=== PATIENT | female | born 1935 | race Caucasian/White ===

== ENCOUNTER 2019-05-13 11:43 | Inpatient (IN) | payer OTHER, MEDICAID ==
[~2019-05-13] VITALS: Ht 149.9 cm; Wt 50.8 kg
[~2019-05-13 11:43] MED LIST: ALBU8.5H8 INH; ATOR20TA64 PO; CALC-823 PO; CYAN250010 PO; DULO60CA41 PO; GABA-531 PO; GINK120C PO; LORA-790 PO; MIRT15TA7 PO; PSYL3.4P6 PO; TRAM50TA92 PO
[2019-05-13 11:55] VITALS: BP_SYST 112
[2019-05-13] MEDS ORDERED: IPRATROPIUM/ALBUTEROL SULFATE 3 ML AMPUL.NEB (DUONEB) INH ONE (12:30)
[2019-05-13 13:10] LABS: BASOPHILS % (AUTO) 0.3 % (0.0-2.0); EOSINOPHILS % (AUTO) 0.1 % (0.0-4.0); HEMATOCRIT 39.5 % (36-48); HEMOGLOBIN 12.7 g/dL (12.0-16.0); LYMPHOCYTES # (AUTO) 0.5 K/uL (1.0-5.5); LYMPHOCYTES % (AUTO) 6.2 % (20.5-51.5); MEAN CORPUSCULAR HEMOGLOBIN 27 pg (27-31); MEAN CORPUSCULAR HGB CONC 32 % (32-36); MEAN CORPUSCULAR VOLUME 83 fL (79.0-98.0); MONOCYTES # (AUTO) 0.3 K/uL (0.0-1.0); MONOCYTES % (AUTO) 3.3 % (1.7-9.3); NEUTROPHILS # (AUTO) 6.8 K/uL (1.8-7.7); NEUTROPHILS % (AUTO) 90.1 % (40.0-70.0); PLATELET COUNT (AUTO) 198 K/uL (130-430); RED BLOOD CELL COUNT(AUTO) 4.76 MIL/uL (4.2-6.2); RED CELL DISTRIBUTION WIDTH 16.5 % (9.0-15.0); WHITE BLOOD COUNT (AUTO) 7.6 K/uL (4.8-10.8)
[2019-05-13 13:19] LABS: ANION GAP 12 (5-15); CALCIUM 8.2 mg/dL (8.4-11.0); CHLORIDE 100 mmol/L (98-107); CREATININE 1.34 mg/dL (0.55-1.30); GLUCOSE 85 mg/dL (70-99); POTASSIUM 4.4 mmol/L (3.5-5.1); SODIUM SERUM 137 mmol/L (136-145); UREA NITROGEN, BLOOD 30 mg/dL (8-21)
[2019-05-13 13:21] LABS: PROTHROMBIN TIME 10.3 SECS (9.5-12.5)
[2019-05-13 13:26] LABS: ALANINE AMINOTRANSFERASE 37 U/L (12-78); ASPARTATE AMINOTRANSFERASE 59 U/L (10-37); TOTAL BILIRUBIN 0.5 mg/dL (0.0-1.0)
[2019-05-13] MEDS ORDERED: KETOROLAC TROMETHAMINE 15 MG VIAL IVP ONE (13:45)
[2019-05-13] MEDS ORDERED: methylPREDNISolone SOD SUCC/PF 62.5 MG/ML VIAL IVP ONE ×2 (13:45→17:45)
[2019-05-13] MEDS ORDERED: FLUT1DIS3 IH (15:40)
[2019-05-13] MEDS ORDERED: ASPI-1153 PO (15:40)
[2019-05-13 16:10] VITALS: BP_SYST 105
[2019-05-13] MEDS ORDERED: ALBUTEROL SULFATE 0.083% 2.5 MG/3 ML VIAL.NEB INH PRN (17:15)
[2019-05-13] MEDS ORDERED: IPRATROPIUM BROM 0.5 MG/2.5 ML VIAL.NEB (ATROVENT) INH PRN (17:15)
[2019-05-13] MEDS ORDERED: traMADol HCL HCL 50 MG TABLET (ULTRAM) PO PRN (17:15)
[2019-05-13] MEDS ORDERED: MAGNESIUM SULFATE 50 ML IV ONE (18:00)
[2019-05-13 18:04] VITALS: BP_SYST 105
[2019-05-13 20:00] VITALS: BP_SYST 153
[2019-05-13] MEDS: ALBUTEROL SULFATE 0.083% 2.5 MG/3 ML VIAL.NEB INH SCH (20:14)
[2019-05-13] MEDS: IPRATROPIUM BROM 0.5 MG/2.5 ML VIAL.NEB (ATROVENT) INH SCH (20:14)
[2019-05-13] MEDS: BUDESONIDE 0.5 MG/2 ML AMPUL.NEB INH SCH (20:14)
[2019-05-14] MEDS: ALBUTEROL SULFATE 0.083% 2.5 MG/3 ML VIAL.NEB INH SCH ×4 (00:39→19:35)
[2019-05-14] MEDS: IPRATROPIUM BROM 0.5 MG/2.5 ML VIAL.NEB (ATROVENT) INH SCH ×4 (00:39→19:35)
[2019-05-14 00:40] VITALS: BP_SYST 142
[2019-05-14] MEDS: MIRTAZAPINE 15 MG TABLET PO SCH ×2 (00:41→20:10)
[2019-05-14] MEDS: guaiFENesin ER 600 MG TAB PO SCH ×3 (00:41→20:10)
[2019-05-14] MEDS: methylPREDNISolone SOD SUCC/PF 62.5 MG/ML VIAL IVP SCH ×4 (00:42→22:06)
[2019-05-14] MEDS: BUDESONIDE 0.5 MG/2 ML AMPUL.NEB INH SCH ×2 (07:00→19:59)
[2019-05-14 08:00] VITALS: BP_SYST 99
[2019-05-14] MEDS: ATORVASTATIN 20 MG TABLET PO SCH (08:38)
[2019-05-14] MEDS: DULoxetine HCL 30 MG CAPSULE.DR (CYMBALTA) PO SCH (08:38)
[2019-05-14] MEDS: ASPIRIN 81 MG TABLET(ECOTRIN) PO SCH (08:38)
[2019-05-14] MEDS ORDERED: FLUTICASONE 250 mCg/SALMETEROL 50 mCg DISKUS W.DEV IH SCH (09:00)
[2019-05-14] MEDS ORDERED: ENOXAPARIN SODIUM 30 MG/0.3 ML SYRINGE SUBCUT ONE (10:30)
[2019-05-14] MEDS: LEVOFLOXACIN 500 MG/D5W 100 ML IV SCH (11:26)
[2019-05-14 12:40] VITALS: BP_SYST 80
[2019-05-14] MEDS ORDERED: NS 250 ML IV ONE (14:15)
[2019-05-14 16:13] VITALS: BP_SYST 90
[2019-05-14 20:00] VITALS: BP_SYST 124
[2019-05-14] MEDS ORDERED: ZOLPIDEM TARTRATE 5 MG TABLET PO ONE (23:45)
[2019-05-15 01:00] VITALS: BP_SYST 119
[2019-05-15] MEDS: IPRATROPIUM BROM 0.5 MG/2.5 ML VIAL.NEB (ATROVENT) INH SCH (01:00)
[2019-05-15] MEDS: ALBUTEROL SULFATE 0.083% 2.5 MG/3 ML VIAL.NEB INH SCH (01:00)
[2019-05-15] MEDS ORDERED: ZOLPIDEM TARTRATE 5 MG TABLET ONE (23:58)
[2019-05-16 19:50] VITALS: BP_SYST 140
[2019-05-16] MEDS: methylPREDNISolone SOD SUCC/PF 62.5 MG/ML VIAL IVP SCH (23:03)
[2019-05-16] MEDS: ZOLPIDEM TARTRATE 5 MG TABLET PO PRN (23:04)
[2019-05-17] VITALS: BP_SYST 140
[2019-05-17] MEDS: IPRATROPIUM BROM 0.5 MG/2.5 ML VIAL.NEB (ATROVENT) INH SCH ×3 (02:03→19:40)
[2019-05-17] MEDS: ALBUTEROL SULFATE 0.083% 2.5 MG/3 ML VIAL.NEB INH SCH ×3 (02:04→19:40)
[2019-05-17] MEDS: methylPREDNISolone SOD SUCC/PF 62.5 MG/ML VIAL IVP SCH ×3 (06:17→21:58)
[2019-05-17] MEDS: BUDESONIDE 0.5 MG/2 ML AMPUL.NEB INH SCH ×2 (07:00→19:59)
[2019-05-17 08:17] VITALS: BP_SYST 148
[2019-05-17] MEDS: ATORVASTATIN 20 MG TABLET PO SCH (09:20)
[2019-05-17] MEDS: guaiFENesin ER 600 MG TAB PO SCH ×2 (09:20→21:57)
[2019-05-17] MEDS: ASPIRIN 81 MG TABLET(ECOTRIN) PO SCH (09:21)
[2019-05-17] MEDS: DULoxetine HCL 30 MG CAPSULE.DR (CYMBALTA) PO SCH (09:21)
[2019-05-17] MEDS: ENOXAPARIN SODIUM 30 MG/0.3 ML SYRINGE SUBCUT SCH (09:22)
[2019-05-17] MEDS: LEVOFLOXACIN 500 MG/D5W 100 ML IV SCH (09:26)
[2019-05-17 12:22] VITALS: BP_SYST 134
[2019-05-17 16:20] VITALS: BP_SYST 106
[2019-05-17 20:00] VITALS: BP_SYST 140
[2019-05-17] MEDS: ZOLPIDEM TARTRATE 5 MG TABLET PO PRN (21:58)
[2019-05-17] MEDS: MIRTAZAPINE 15 MG TABLET PO SCH (21:58)
[2019-05-17 23:39] VITALS: BP_SYST 106
[2019-05-18] VITALS: BP_SYST 135
[2019-05-18] MEDS: ALBUTEROL SULFATE 0.083% 2.5 MG/3 ML VIAL.NEB INH SCH ×4 (00:41→20:13)
[2019-05-18] MEDS: IPRATROPIUM BROM 0.5 MG/2.5 ML VIAL.NEB (ATROVENT) INH SCH ×4 (00:41→20:13)
[2019-05-18] MEDS: methylPREDNISolone SOD SUCC/PF 62.5 MG/ML VIAL IVP SCH ×3 (06:13→21:11)
[2019-05-18] MEDS: BUDESONIDE 0.5 MG/2 ML AMPUL.NEB INH SCH ×2 (07:15→20:47)
[2019-05-18 08:00] VITALS: BP_SYST 152
[2019-05-18] MEDS: ASPIRIN 81 MG TABLET(ECOTRIN) PO SCH (08:51)
[2019-05-18] MEDS: guaiFENesin ER 600 MG TAB PO SCH ×2 (08:51→21:11)
[2019-05-18] MEDS: ATORVASTATIN 20 MG TABLET PO SCH (08:51)
[2019-05-18] MEDS: DULoxetine HCL 30 MG CAPSULE.DR (CYMBALTA) PO SCH (08:51)
[2019-05-18] MEDS: ENOXAPARIN SODIUM 30 MG/0.3 ML SYRINGE SUBCUT SCH (08:52)
[2019-05-18] MEDS: LEVOFLOXACIN 500 MG/D5W 100 ML IV SCH (08:59)
[2019-05-18] MEDS ORDERED: FUROSEMIDE 20 MG TABLET PO ONE (12:15)
[2019-05-18 12:35] VITALS: BP_SYST 130
[2019-05-18 16:35] VITALS: BP_SYST 134
[2019-05-18 20:00] VITALS: BP_SYST 124
[2019-05-18] MEDS: MIRTAZAPINE 15 MG TABLET PO SCH (21:11)
[2019-05-19] MEDS: IPRATROPIUM BROM 0.5 MG/2.5 ML VIAL.NEB (ATROVENT) INH SCH ×4 (01:00→19:50)
[2019-05-19] MEDS: ALBUTEROL SULFATE 0.083% 2.5 MG/3 ML VIAL.NEB INH SCH ×4 (01:00→19:50)
[2019-05-19] MEDS: methylPREDNISolone SOD SUCC/PF 62.5 MG/ML VIAL IVP SCH ×2 (05:34→14:34)
[2019-05-19 06:48] LABS: BASOPHILS % (AUTO) 0.3 % (0.0-2.0); HEMATOCRIT 34.9 % (36-48); HEMOGLOBIN 11.3 g/dL (12.0-16.0); LYMPHOCYTES # (AUTO) 0.9 K/uL (1.0-5.5); LYMPHOCYTES % (AUTO) 21.1 % (20.5-51.5); MEAN CORPUSCULAR HEMOGLOBIN 26 pg (27-31); MEAN CORPUSCULAR HGB CONC 32 % (32-36); MEAN CORPUSCULAR VOLUME 81 fL (79.0-98.0); MONOCYTES # (AUTO) 0.6 K/uL (0.0-1.0); MONOCYTES % (AUTO) 15.1 % (1.7-9.3); NEUTROPHILS # (AUTO) 2.7 K/uL (1.8-7.7); NEUTROPHILS % (AUTO) 63.5 % (40.0-70.0); PLATELET COUNT (AUTO) 205 K/uL (130-430); RED BLOOD CELL COUNT(AUTO) 4.29 MIL/uL (4.2-6.2); RED CELL DISTRIBUTION WIDTH 16.7 % (9.0-15.0); WHITE BLOOD COUNT (AUTO) 4.3 K/uL (4.8-10.8)
[2019-05-19 06:56] LABS: ANION GAP 6 (5-15); CALCIUM 7.9 mg/dL (8.4-11.0); CHLORIDE 112 mmol/L (98-107); GLUCOSE 176 mg/dL (70-99); POTASSIUM 3.7 mmol/L (3.5-5.1); SODIUM SERUM 146 mmol/L (136-145); UREA NITROGEN, BLOOD 42 mg/dL (8-21)
[2019-05-19 06:57] LABS: ALANINE AMINOTRANSFERASE 44 U/L (12-78); ALBUMIN 2.7 g/dL (3.4-4.8); ASPARTATE AMINOTRANSFERASE 39 U/L (10-37); CREATININE 1.08 mg/dL (0.55-1.30); TOTAL BILIRUBIN 0.4 mg/dL (0.0-1.0)
[2019-05-19] MEDS: BUDESONIDE 0.5 MG/2 ML AMPUL.NEB INH SCH (07:13)
[2019-05-19 07:45] VITALS: BP_SYST 117
[2019-05-19 07:50] VITALS: BP_SYST 117
[2019-05-19] MEDS: ENOXAPARIN SODIUM 30 MG/0.3 ML SYRINGE SUBCUT SCH (09:27)
[2019-05-19] MEDS: LEVOFLOXACIN 500 MG/D5W 100 ML IV SCH (09:27)
[2019-05-19] MEDS: ASPIRIN 81 MG TABLET(ECOTRIN) PO SCH (09:29)
[2019-05-19] MEDS: DULoxetine HCL 30 MG CAPSULE.DR (CYMBALTA) PO SCH (09:29)
[2019-05-19] MEDS: ATORVASTATIN 20 MG TABLET PO SCH (09:29)
[2019-05-19] MEDS: guaiFENesin ER 600 MG TAB PO SCH ×2 (09:29→21:07)
[2019-05-19 13:14] VITALS: BP_SYST 135
[2019-05-19 16:22] VITALS: BP_SYST 126
[2019-05-19 20:00] VITALS: BP_SYST 145
[2019-05-19] MEDS: MIRTAZAPINE 15 MG TABLET PO SCH (21:07)
[2019-05-19] MEDS: PREDNISONE 20 MG TABLET PO SCH (21:07)
[2019-05-19] MEDS: ZOLPIDEM TARTRATE 5 MG TABLET PO PRN (21:34)
[2019-05-20] VITALS: BP_SYST 145
[2019-05-20] MEDS: ALBUTEROL SULFATE 0.083% 2.5 MG/3 ML VIAL.NEB INH SCH ×3 (01:00→13:46)
[2019-05-20] MEDS: IPRATROPIUM BROM 0.5 MG/2.5 ML VIAL.NEB (ATROVENT) INH SCH ×3 (01:00→13:46)
[2019-05-20] MEDS: BUDESONIDE 0.5 MG/2 ML AMPUL.NEB INH SCH ×2 (01:32→08:29)
[2019-05-20 07:50] VITALS: BP_SYST 130
[2019-05-20] MEDS: LEVOFLOXACIN 500 MG/D5W 100 ML IV SCH (09:13)
[2019-05-20] MEDS: ENOXAPARIN SODIUM 30 MG/0.3 ML SYRINGE SUBCUT SCH (09:14)
[2019-05-20] MEDS: DULoxetine HCL 30 MG CAPSULE.DR (CYMBALTA) PO SCH (09:14)
[2019-05-20] MEDS: PREDNISONE 20 MG TABLET PO SCH (09:14)
[2019-05-20] MEDS: ASPIRIN 81 MG TABLET(ECOTRIN) PO SCH (09:14)
[2019-05-20] MEDS: guaiFENesin ER 600 MG TAB PO SCH (09:14)
[2019-05-20] MEDS: ATORVASTATIN 20 MG TABLET PO SCH (09:14)
[2019-05-20 12:00] VITALS: BP_SYST 144
[2019-05-20 13:22] VITALS: BP_SYST 144
[2019-05-20 16:10] VITALS: BP_SYST 131
[2019-05-20 17:18] VITALS: BP_SYST 131
[2019-06-07 15:36] LABS: ANION GAP 11 (5-15); CALCIUM 7.5 mg/dL (8.4-11.0); CHLORIDE 102 mmol/L (98-107); GLUCOSE 169 mg/dL (70-99); POTASSIUM 3.9 mmol/L (3.5-5.1); SODIUM SERUM 135 mmol/L (136-145)
[2019-06-07 15:37] LABS: CREATININE 1.46 mg/dL (0.55-1.30); MEAN CORPUSCULAR VOLUME 82 fL (79.0-98.0); RED BLOOD CELL COUNT(AUTO) 4.12 MIL/uL (4.2-6.2); UREA NITROGEN, BLOOD 49 mg/dL (8-21); WHITE BLOOD COUNT (AUTO) 7.6 K/uL (4.8-10.8)
[2019-06-07 15:38] LABS: BASOPHILS % (AUTO) 0.2 % (0.0-2.0); LYMPHOCYTES # (AUTO) 0.2 K/uL (1.0-5.5); LYMPHOCYTES % (AUTO) 3.2 % (20.5-51.5); MEAN CORPUSCULAR HEMOGLOBIN 27 pg (27-31); MEAN CORPUSCULAR HGB CONC 32 % (32-36); MONOCYTES # (AUTO) 0.2 K/uL (0.0-1.0); MONOCYTES % (AUTO) 2.4 % (1.7-9.3); NEUTROPHILS # (AUTO) 7.1 K/uL (1.8-7.7); NEUTROPHILS % (AUTO) 94.2 % (40.0-70.0); PLATELET COUNT (AUTO) 183 K/uL (130-430)
== END 2019-05-20 18:30 | DRG 193 ==
LOC: SED 11:43 → STU 13:49 → SMU 05-14 23:33 → STU 05-14 23:50
PROVIDERS: ADMIT Internal Medicine Hospice and Palliative Medicine; ATTEND Internal Medicine Hospice and Palliative Medicine
DX: J18.9 Pneumonia, unspecified organism (principal); J96.01 Acute respiratory failure with hypoxia; J44.1 Chronic obstructive pulmonary disease with (acute) exacerbation; J44.0 Chronic obstructive pulmonary disease with (acute) lower respiratory infection; J45.901 Unspecified asthma with (acute) exacerbation; F32.9 Major depressive disorder, single episode, unspecified; E78.5 Hyperlipidemia, unspecified; M81.0 Age-related osteoporosis without current pathological fracture; M79.7 Fibromyalgia; G62.9 Polyneuropathy, unspecified; Z87.891 Personal history of nicotine dependence; Z88.0 Allergy status to penicillin; Z79.899 Other long term (current) drug therapy
CPT/HCPCS: 36415; 36600; 71045; 80048; 80053; 82803-TC; 83605; 84484; 85025; 85610-TC; 85730-TC; 87040-TC; 93005; 94640; 94760; 96365; 96375; 96376; 97116-GP; 97530-GP; 99291; G0378; J1650; J1885; J1956; J2930; J3475; J7050; J7512; J7613; J7620; J7626